=== PATIENT | female | born 1955 | race Caucasian/White ===

== ENCOUNTER 2018-07-10 06:10 | Emergency (ER) | payer OTHER ==
[~2018-07-10] VITALS: Ht 203.2 cm; Wt 97.5 kg
[2018-07-10] MEDS ORDERED: CYMBALTA60 MG PO (06:33)
[2018-07-10] MEDS ORDERED: COZAAR 25 MG TA25 M1 PO (06:34)
[2018-07-10] MEDS ORDERED: ZANAFLEX2 MG PO (06:34)
[2018-07-10] MEDS ORDERED: BYSTOLIC 5 MG5 M1 PO (06:34)
[2018-07-10] MEDS ORDERED: NEURONTIN600 MG PO (06:35)
[2018-07-10] MEDS ORDERED: GLUCOPHAGE XR500 MG PO (06:35)
[2018-07-10] MEDS ORDERED: ZOCOR20 MG PO (06:36)
[2018-07-10 06:50] LABS: ABSOLUTE NEUTROPHILS 11.9 thou/uL (1.4-8.2); BASOPHILS 0.3 % (0.0-2.0); EOSINOPHILS 0.4 % (0.0-3.0); HEMATOCRIT 43.9 % (37.0-47.0); LYMPHOCYTES 9.8 % (24.0-44.0); MCH 30.5 pg (26.0-34.0); MCHC 34.1 g/dL (28.0-37.0); MCV 89.3 fL (80.0-100.0); MONOCYTES 6.2 % (1.0-8.0); PLATELET COUNT 250 thou/uL (150-400); POLYS 83.3 % (36.0-66.0); RBC 4.91 mil/uL (4.20-5.00); RDW 13.1 % (10.5-14.5); WBC 14.3 thou/uL (4.0-11.0)
[2018-07-10 06:54] LABS: ANION GAP 13 mmol/L (7-16); BUN 33 mg/dL (7-18); CALCIUM 9.9 mg/dL (8.5-10.1); CHLORIDE 100 mmol/L (98-107); CO2 26 mmol/L (21-32); CREATININE 1.5 mg/dL (0.6-1.0); GLUCOSE 326 mg/dL (74-106); POTASSIUM 3.8 mmol/L (3.5-5.1); SODIUM 139 mmol/L (136-145)
[2018-07-10 07:00] LABS: URINE BILIRUBIN NEGATIVE (Negative); URINE BLOOD 2+ (Negative); URINE CLARITY CLEAR; URINE COLOR YELLOW; URINE GLUCOSE-RANDOM* 3+ (Negative); URINE KETONES 1+ (Negative); URINE LEUKOCYTES-REFLEX NEGATIVE (Negative); URINE NITRITE-REFLEX NEGATIVE (Negative); URINE PROTEIN (DIPSTICK) TRACE (Negative); URINE SPECIFIC GRAVITY 1.015 (1.005-1.035); URINE UROBILINOGEN 0.2 E.U./dl (0.2-1.0)
[2018-07-10 07:04] LABS: ALBUMIN 4.1 g/dL (3.4-5.0); LIPASE 140 U/L (73-393); SGOT 25 U/L (15-37); SGPT 40 U/L (30-65); TOTAL BILIRUBIN 1.8 mg/dL (<0.1-1.0); TOTAL PROTEIN 7.5 g/dL (6.4-8.2); TROPONIN-I <0.06 ng/mL (<0.06)
[2018-07-10 07:13] LABS: CASTS None Seen /LPF (None Seen); MUCUS 0-3 Light strn/LPF (None Seen); SQUAMOUS 0-3 Few /LPF (0-3)
[2018-07-10 07:14] LABS: BACTERIA-REFLEX None Seen /HPF (None Seen); CRYSTALS None Seen /LPF (None Seen); URINE RBC 3-10 Few /HPF (0-2); URINE WBC-REFLEX 0-5 Rare /HPF (0-5)
[2018-07-10] MEDS ORDERED: AMOXICILLIN875 MG PO (07:53)
[2018-07-10] MEDS ORDERED: FLOMAX0.4 MG PO (07:53)
[2018-07-10] MEDS ORDERED: ONDANSETRON ODT8 MG PO (07:53)
[2018-07-10] MEDS ORDERED: NORCO 5-325 TA1 EACH PO (07:57)
[2018-07-10] MEDS ORDERED: TORADOL 10 MG T10 MG PO (07:57)
[2018-07-10 08:56] VITALS: BP 169/81
--- NOTE | 2018-07-10 17:09 | EKG ---
[address] [address] [place] [address] ELECTROCARDIOGRAM REPORT Name: ZACHERY LOWERY Gabby Room #: DEP [facility]#: [id number] ������������������ Admission: 07/10/18 ������������������ Attend Phys: Discharge: 07/10/18 ������������������ Date of : 57 Report #: [id number] ����������������������������������������������������������������� [id number] THIS REPORT FOR: //name// [facility] ED Test Date: 2018-07-10 Test Time: 07:31:29 Pat Name: ZACHERY LOWERY Department: Room: Gender: F Rigger Up: HONG : 1955 Requested By: Elmer Mcdaniels Order Number: [id number] MD: Sergio Henao Measurements Intervals [place] Rate: 70 P: 54 [place]: 151 QRS: -7 QRSD: 94 T: 3 QT: 427 QTc: 461 Interpretive Statements Sinus rhythm Nonspecific ST and T wave abnormality No previous ECG available for comparison Electronically Signed On 07-10-2018 17:09:52 CDT by Sergio Henao [email or web address] ��������������������������������������������� <ELECTRONICALLY SIGNED> ���������������������������������������� By: Sergio Henao MD, [facility] ��������������������������������������������� 07/10/18 1709 0731 07 Sergio Henao MD, FACC /EPI
== END 2018-07-10 08:56 | disposition home or self-care (01) ==
LOC: ER 06:10
PROVIDERS: Emergency Medicine
DX: I12.9 Hypertensive chronic kidney disease with stage 1 through stage 4 chronic kidney disease, or unspecified chronic kidney disease (principal); E11.22 Type 2 diabetes mellitus with diabetic chronic kidney disease; N18.9 Chronic kidney disease, unspecified; N39.0 Urinary tract infection, site not specified; R11.2 Nausea with vomiting, unspecified; R19.7 Diarrhea, unspecified; E80.6 Other disorders of bilirubin metabolism; E78.5 Hyperlipidemia, unspecified; M79.7 Fibromyalgia; N20.0 Calculus of kidney; M54.5 Low back pain

== ENCOUNTER 2018-11-20 14:59 | Emergency (ER) | payer OTHER ==
[~2018-11-20] VITALS: Ht 170.2 cm; Wt 97.5 kg
[~2018-11-20 14:59] MED LIST: AMOXICILLIN875 MG PO; BYSTOLIC 5 MG5 M1 PO; COZAAR 25 MG TA25 M1 PO; CYMBALTA60 MG PO; FLOMAX0.4 MG PO; GLUCOPHAGE XR500 MG PO; NEURONTIN600 MG PO; NORCO 5-325 TA1 EACH PO; ONDANSETRON ODT8 MG PO; TORADOL 10 MG T10 MG PO; ZANAFLEX2 MG PO; ZOCOR20 MG PO
[2018-11-20 15:33] LABS: URINE BLOOD NEGATIVE (Negative); URINE CLARITY CLEAR; URINE COLOR YELLOW; URINE GLUCOSE-RANDOM* NEGATIVE (Negative); URINE KETONES NEGATIVE (Negative); URINE LEUKOCYTES TRACE (Negative); URINE NITRITE NEGATIVE (Negative); URINE PROTEIN (DIPSTICK) 1+ (Negative); URINE SPECIFIC GRAVITY >= 1.030 (1.005-1.035); URINE UROBILINOGEN 0.2 E.U./dl (0.2-1.0)
[2018-11-20 15:42] LABS: ICTOTEST (BILI CONFIRMATORY) Negative (Negative); URINE BILIRUBIN NEGATIVE (Negative)
[2018-11-20 15:49] LABS: ABSOLUTE NEUTROPHILS 6.6 thou/uL (1.4-8.2); BASOPHILS 0.4 % (0.0-2.0); EOSINOPHILS 0.8 % (0.0-3.0); HEMATOCRIT 40.4 % (37.0-47.0); HEMOGLOBIN 13.9 gm/dL (12.0-15.0); LYMPHOCYTES 23.6 % (24.0-44.0); MCH 31.1 pg (26.0-34.0); MCHC 34.4 g/dL (28.0-37.0); MCV 90.4 fL (80.0-100.0); MONOCYTES 7.5 % (1.0-8.0); PLATELET COUNT 290 thou/uL (150-400); POLYS 67.7 % (36.0-66.0); RBC 4.47 mil/uL (4.20-5.00); RDW 13.6 % (10.5-14.5); WBC 9.7 thou/uL (4.0-11.0)
[2018-11-20 15:57] LABS: CALCIUM 9.7 mg/dL (8.5-10.1); CREATININE 1.8 mg/dL (0.6-1.0); POTASSIUM 3.4 mmol/L (3.5-5.1)
[2018-11-20 16:00] LABS: BACTERIA 1-9 Few /HPF (None Seen); CASTS None Seen /LPF (None Seen); CRYSTALS None Seen /LPF (None Seen); SQUAMOUS 4-10 Moderate /LPF (0-3); URINE RBC None Seen /HPF (0-2); URINE WBC 0-5 Rare /HPF (0-5)
[2018-11-20 16:03] LABS: ALBUMIN 3.8 g/dL (3.4-5.0)
[2018-11-20 17:42] VITALS: BP 138/79
--- NOTE | 2018-11-21 08:01 | EKG ---
[address] [address] [facility] [place] [address] ELECTROCARDIOGRAM REPORT Name: ZACHERY LOWERY Room #: DEP [facility]#: [id number] Admission: 11/20/18 Attend Phys: Discharge: 11/20/18 Date of : 57 Report #: [id number] THIS REPORT FOR: //name// [facility] ED Test Date: 2018-11-20 Test Time: 15:31:16 Pat Name: ZACHERY LOWERY Department: Room: Gender: F Logistics Management Specialist: : 1955 Requested By: Gus Mathias Order Number: [id number] MD: Sergio Henao Measurements Intervals [place] Rate: 97 P: 37 [place]: 137 QRS: -9 QRSD: 87 T: 53 QT: 381 QTc: 484 Interpretive Statements Sinus rhythm Minimal ST depression, lateral leads Borderline prolonged QT interval Compared to ECG 07/10/2018 07:31:29 No significant changes Electronically Signed On 11-21-2018 8:01:25 CDT by Sergio Henao [email or web address] <ELECTRONICALLY SIGNED> By: Sergio Henao MD, [facility] 11/21/18 0801 1531 30 Sergio Henao MD, FAC /EPI
== END 2018-11-20 17:42 | disposition home or self-care (01) ==
LOC: ER 14:59
PROVIDERS: Emergency Medicine
DX: R42 Dizziness and giddiness (principal); E11.9 Type 2 diabetes mellitus without complications; I10 Essential (primary) hypertension; E78.5 Hyperlipidemia, unspecified; M79.7 Fibromyalgia

== ENCOUNTER 2018-12-11 15:17 | Emergency (ER) | payer OTHER ==
[~2018-12-11] VITALS: Ht 172.7 cm; Wt 93.0 kg
[2018-12-11 16:05] LABS: ABSOLUTE NEUTROPHILS 5.3 thou/uL (1.4-8.2); BASOPHILS 0.4 % (0.0-2.0); EOSINOPHILS 0.5 % (0.0-3.0); HEMATOCRIT 40.3 % (37.0-47.0); HEMOGLOBIN 13.7 gm/dL (12.0-15.0); LYMPHOCYTES 23.9 % (24.0-44.0); MCH 30.9 pg (26.0-34.0); MCV 90.9 fL (80.0-100.0); MONOCYTES 6.7 % (1.0-8.0); PLATELET COUNT 276 thou/uL (150-400); POLYS 68.5 % (36.0-66.0); RBC 4.43 mil/uL (4.20-5.00); RDW 13.3 % (10.5-14.5); WBC 7.7 thou/uL (4.0-11.0)
[2018-12-11 16:24] LABS: ANION GAP 11 mmol/L (7-16); BUN 21 mg/dL (7-18); CALCIUM 9.4 mg/dL (8.5-10.1); CHLORIDE 97 mmol/L (98-107); CO2 30 mmol/L (21-32); CREATININE 1.5 mg/dL (0.6-1.0); GLUCOSE 265 mg/dL (74-106); POTASSIUM 3.2 mmol/L (3.5-5.1); SODIUM 138 mmol/L (136-145)
[2018-12-11 16:33] LABS: MAGNESIUM 1.5 mg/dL (1.8-2.4); TROPONIN-I <0.06 ng/mL (<0.06)
[2018-12-11 17:16] VITALS: BP 138/84
--- NOTE | 2018-12-12 08:02 | EKG ---
[address] [address] ELECTROCARDIOGRAM REPORT Name: BEVERLEYZACHERY A Room #: DEP [facility]#: [id number] Admission: 12/11/18 Attend Phys: Discharge: 12/11/18 Date of : 57 Report #: [id number] THIS REPORT FOR: //name// [facility] ED Test Date: 2018-12-11 Test Time: 15:30:51 Pat Name: ZACHERY LOWERY Department: Room: Gender: F Garment Finisher: : 1955 Requested By: Carlito Mota Order Number: [id number] MD: Erwin Phillips Measurements Intervals [place] Rate: 95 P: 39 [place]: 140 QRS: -11 QRSD: 88 T: 55 QT: 370 QTc: 465 Interpretive Statements Sinus rhythm Compared to ECG 11/20/2018 15:31:16 ST (T wave) deviation no longer present Electronically Signed On 12-12-2018 8:02:36 CDT by Erwin Phillips [email or web address] <ELECTRONICALLY SIGNED> By: Erwin Phillips MD 12/12/18 0802 1530 29 Erwin Phillips MD /DEVON
== END 2018-12-11 17:16 | disposition home or self-care (01) ==
LOC: ER 15:17
PROVIDERS: Emergency Medicine
DX: E87.6 Hypokalemia (principal); E83.42 Hypomagnesemia; R42 Dizziness and giddiness; I10 Essential (primary) hypertension; E11.9 Type 2 diabetes mellitus without complications; E78.5 Hyperlipidemia, unspecified; M79.7 Fibromyalgia

== ENCOUNTER 2019-03-28 12:14 | Emergency (ER) | payer OTHER ==
[~2019-03-28] VITALS: Ht 172.7 cm; Wt 93.4 kg
[2019-03-28] MEDS ORDERED: TOPROL XL25 MG PO (12:25)
[2019-03-28 14:51] LABS: ABSOLUTE NEUTROPHILS 10.3 thou/uL (1.4-8.2); BASOPHILS 0.2 % (0.0-2.0); EOSINOPHILS 0.4 % (0.0-3.0); HEMATOCRIT 42.5 % (37.0-47.0); HEMOGLOBIN 14.3 gm/dL (12.0-15.0); LYMPHOCYTES 9.4 % (24.0-44.0); MCH 30.2 pg (26.0-34.0); MCHC 33.7 g/dL (28.0-37.0); MCV 89.5 fL (80.0-100.0); MONOCYTES 5.8 % (1.0-8.0); PLATELET COUNT 295 thou/uL (150-400); POLYS 84.2 % (36.0-66.0); RBC 4.75 mil/uL (4.20-5.00); RDW 12.9 % (10.5-14.5); WBC 12.3 thou/uL (4.0-11.0)
[2019-03-28 15:02] LABS: CALCIUM 10.2 mg/dL (8.5-10.1); CREATININE 1.1 mg/dL (0.6-1.0); POTASSIUM 4.1 mmol/L (3.5-5.1)
[2019-03-28 15:58] VITALS: BP 146/96
--- NOTE | 2019-03-29 14:23 | EKG ---
[address] [address] [address] [facility] [place] [address] ELECTROCARDIOGRAM REPORT Name: ZACHERY LOWERY Room #: DEP [facility]#: [id number] Admission: 03/28/19 Attend Phys: Discharge: 03/28/19 Date of : 57 Report #: [id number] THIS REPORT FOR: //name// [facility] ED Test Date: 2019-03-28 Test Time: 14:04:45 Pat Name: ZACHERY LOWERY Department: Room: Gender: Core Baker: SEBASTIÁN : 1955 Requested By: Silvia Cope Order Number: [id number] MD: Erwin Phillips Measurements Intervals [place] Rate: 94 P: 50 [place]: 139 QRS: -18 QRSD: 81 T: 46 QT: 355 QTc: 444 Interpretive Statements Sinus rhythm LVH by voltage Compared to ECG 12/11/2018 15:30:51 Left ventricular hypertrophy now present Electronically Signed On 03-29-2019 14:22:46 RAMP FLIGHT ATTENDANT by Erwin Phillips [email or web address] <ELECTRONICALLY SIGNED> By: Erwin Phillips MD 03/29/19 1422 1404 03 Erwin Phillips MD /DEVON
== END 2019-03-28 16:00 | disposition home or self-care (01) ==
LOC: ER 12:14
PROVIDERS: Nurse Practitioner
DX: S00.03XA Contusion of scalp, initial encounter (principal); I10 Essential (primary) hypertension; E11.9 Type 2 diabetes mellitus without complications; M79.7 Fibromyalgia; E78.5 Hyperlipidemia, unspecified; Z91.14 Patient's other noncompliance with medication regimen; W18.39XA Other fall on same level, initial encounter; Y92.89 Other specified places as the place of occurrence of the external cause; Y93.89 Activity, other specified; Y99.0 Civilian activity done for income or pay

== ENCOUNTER → 2019-04-08 | Outpatient (CLI) | payer OTHER ==
[~2019-04-08] MED LIST changes: +TOPROL XL25 MG PO
--- NOTE | 2019-04-08 12:44 | 2DMMODE ---
[facility] [place] [address] 2 D/M-MODE ECHOCARDIOGRAM Name: BEVERLEYZACHERY Gabby Room #: REG [facility]#: [id number] Admission: 04/08/19 Attend Phys: Christiano Hernandez II Discharge: Date of : 57 Report #: [id number] THIS REPORT FOR: //name// APPROVED REPORT Study performed: 04/08/2019 11:55:38 EXAM: Comprehensive 2D, Doppler, and color-flow Echocardiogram Patient Location: Out-Patient Status: routine BSA: 2.05 HR: 78 bpm BP: 141/91 mmHg Rhythm: NSR Other Information Study Quality: Adequate Indications Dyspnea on exertion. Hx: DM, HTN, HLP, orthostatic hypotension, lightheaded, falls. 2D Dimensions RVDd: 32.77 mm IVSd: 10.94 (7-11mm) LVOT Diam: 19.97 (18-24mm) LVDd: 40.42 mm PWd: 9.89 (7-11mm) Ascending Ao: 30.66 (22-36mm) LVDs: 28.28 (25-40mm) Aortic Root: 33.25 mm Volumes Left Atrial Volume (Systole) Single Plane 4CH: 42.37 mL Single Plane 2CH: 65.57 mL LA ESV Index: 28.00 mL/m2 Aortic Valve AoV Peak Yfn.: 1.53 m/s AO Peak Gr.: 9.41 mmHg LVOT Max P.83 mmHg LVOT Max V: 1.10 m/s DEJON Vmax: 2.24 cm2 Mitral Valve E/A Ratio: 0.9 MV Decel. Time: 295.82 ms [facility] [address] [address] 2 D/M-MODE ECHOCARDIOGRAM Name: BEVERLEYZACHERY Gabby Room #: [facility]#: [id number] Admission: 04/08/19 Attend Phys: Christiano Hernandez II Discharge: Date of : 57 Report #: [id number] MV E Max Yfn.: 0.80 m/s MV A Yfn.: 0.92 m/s MV PHT: 85.79 ms IVRT: 93.43 ms Pulmonary Valve PV Peak Yfn.: 0.90 m/s PV Peak Gr.: 3.21 mmHg Tricuspid Valve RAP Estimate: 5.00 mmHg Left Ventricle The left ventricle is normal size. There is normal LV segmental wall motion. There is normal left ventricular wall thickness. The left ventricular systolic function is normal. LVEF is 55-60%. Mild diastolic dysfunction is present (impaired relaxation pattern). Right Ventricle The right ventricle is normal size. The right ventricular systolic function is normal. Atria The left atrium size is normal. The right atrium size is normal. Aortic Valve The aortic valve is normal in structure. No aortic regurgitation is present. There is no aortic valvular stenosis. Mitral Valve The mitral valve is normal in structure. There is no mitral valve regurgitation noted. No evidence of mitral valve stenosis. Tricuspid Valve The tricuspid valve is normal in structure. Trace tricuspid regurgitation. Unable to assess PA pressure. Pulmonic Valve Pulmonic valve is not well visualized. There is no pulmonic valvular regurgitation noted. Great Vessels The aortic root is normal in size. The ascending aorta is normal in size. IVC is normal in size and collapses >50% with inspiration. [facility] [place] [address] 2 D/M-MODE ECHOCARDIOGRAM Name: ZACHERY LOWERY Room #: REG [facility]#: [id number] Admission: 04/08/19 Attend Phys: Christiano Hernandez II Discharge: Date of : 57 Report #: [id number] Pericardium There is no pericardial effusion. <Conclusion> The left ventricle is normal size. LVEF is 55-60%. The aortic valve is normal in structure. The mitral valve is normal in structure. The tricuspid valve is normal in structure. Trace tricuspid regurgitation. Unable to assess PA pressure. There is no pericardial effusion. <ELECTRONICALLY SIGNED> By: Kin Oneill MD 04/08/19 1243 1243 1243 Kin Oneill MD /INF
== END ==
LOC: CV 08:32
DX: R06.09 Other forms of dyspnea (principal); I10 Essential (primary) hypertension; E78.5 Hyperlipidemia, unspecified; E11.9 Type 2 diabetes mellitus without complications; Z79.899 Other long term (current) drug therapy